=== PATIENT | male | born 1935 | race Caucasian/White ===

== ENCOUNTER 2017-08-13 10:08 | Outpatient (CLI) | payer OTHER ==
--- NOTE | 2017-08-13 12:52 | ULT ---
ABDOMINAL AORTA ULTRASOUND: HISTORY: Evaluate for aortic aneurysm. COMPARISON: 09/03/15. TECHNIQUE: Sagittal and transverse imaging of the abdominal aorta is performed. FINDINGS: The proximal aorta is not appreciated due to bowel gas. There is dilatation of the mid aorta measuri ng 3.4 x 3.2 x 2.8 cm. Previously, the aorta measured 3.8 cm in the transverse dimension. No apprec iable change. Distal aorta measures 1.9 x 1.7 cm. IMPRESSION: Essentially stable aneurysmal dilatation of the mid abdominal aorta. POS: [facility]
== END 2017-08-13 10:09 | disposition home or self-care (01) ==
LOC: ULT 10:08
PROVIDERS: ATTEND Family Medicine
DX: I71.4 Abdominal aortic aneurysm, without rupture (principal)
CPT/HCPCS: 76775

== ENCOUNTER 2018-05-06 12:29 | Outpatient (CLI) | payer OTHER ==
--- NOTE | 2018-05-06 14:43 | ULT ---
ABDOMINAL AORTIC ULTRASOUND: History: Follow up abdominal aortic aneurysm. Comparison: 08-13-17, 09-03-15 FINDINGS: The proximal abdominal aorta measures in the 2.3 cm range. In the midabdominal aorta which appears to be more in an infrarenal location there is a somewhat sacular dilatation of the aorta. The best AP m easurements I obtain are approximately 3.4 cm which is similar to the previous examination. These erin surements are best obtained on the sagittal view. The aorta is somewhat tortuous in an AP direction a nd straight transverse images somewhat falsely elongate the lumen. The transverse dimension is 3.3 cm . Distally there is slight ectasia of the aorta but no aneurysm. IMPRESSION: Stable abdominal aortic aneurysm. An area of focal ectasia which only measures in the 1.6 cm range. POS: [facility]
== END 2018-05-06 12:30 | disposition home or self-care (01) ==
LOC: ULT 12:29
PROVIDERS: ATTEND Nurse Practitioner Family
DX: I71.4 Abdominal aortic aneurysm, without rupture (principal); I77.819 Aortic ectasia, unspecified site
CPT/HCPCS: 76775

== ENCOUNTER 2019-05-08 07:58 | Inpatient (IN) | payer MEDICARE, OTHER ==
[2019-05-08 08:42] LABS: Bacteria/HPF 1+ HPF (None Seen); Bilirubin Negative (Negative); Blood, Urine Trace (Negative); Clarity Clear (Clear); Glucose, Urine (Dipstick) Normal (Negative); Leukocyte Negative Leu/uL (Negative); Nitrite Negative (Negative); Protein, Urine (Dipstick) 30 mg/dL (Neg-Trace); Squamous Epithelial None Seen HPF (0-3); Urobilinogen Normal mg/dL (Less than 2); WBC/HPF 0-3 HPF (0-3)
[2019-05-08 08:45] LABS: #Lymphocytes 0.5 thou/uL (1.20-3.40); #Monocytes 0.2 thou/uL (0.11-0.59); #Neutrophils 2.6 thou/uL (1.40-6.50); %Lymphocytes 15.6 % (21.0-51.0); %Monocytes 5.7 % (0.0-10.0); %Neutrophils 78.8 % (42.0-75.0); Hemoglobin 10.5 g/dL (14.0-18.0); Mean Corpuscular HGB CONC 35.2 g/dL (32.0-36.0); Mean Corpuscular Hemoglobin 34.2 pg (27.0-31.0); Mean Corpuscular Volume 97.1 fL (78.0-98.0); Mean Platelet Volume 7.9 fL (7.4-10.4); Platelet Count 121 thou/uL (130-400); RBC Distribution Width 14.7 % (11.5-14.5); Red Blood Cell (RBC) Count 3.08 mill/uL (4.70-6.10); White Blood Cell (WBC) Count 3.3 thou/uL (4.8-10.8)
--- NOTE | 2019-05-08 08:51 | RAD ---
Chest AP view INDICATION: Found down on ground; history of Parkinson's disease and dementia; dyspnea COMPARISON: September 25, 2014 single view chest radiograph FINDINGS: Lungs:There is right suprahilar and left infrahilar airspace opacities. There is air interstitial [place] involving both lower lobes suspicious for edema. Cardiac silhouette:There is moderate cardiomegaly Pulmonary vasculature:Mildly prominent Pleural spaces:No pleural effusion or pneumothorax is demonstrated. Upper abdomen:No abnormality seen. Osseous structures: No acute osseous abnormality. Additional findings:None. IMPRESSION: Moderate cardiomegaly and mild pulmonary vascular congestion. There are bilateral perihil ar opacities and interstitial opacities suspicious for edema. Recommend correlation for mild CHF
[2019-05-08 08:52] LABS: ALT (SGPT) 28 U/L (8-55); AST (SGOT) 36 U/L (5-34); Albumin 3.5 g/dL (3.4-4.8); Alkaline Phosphatase 64 U/L (40-110); Anion Gap 12 mmol/L (10-20); BUN (Urea Nitrogen) 32 mg/dL (8.4-25.7); Bilirubin, Total 1.4 mg/dL (0.2-1.2); CK (CPK) 419 U/L (30-200); Calc. Creatinine Clearance 0 mL/min (70-130); Calcium 9.1 mg/dL (7.8-10.44); Carbon Dioxide 25 mmol/L (23-31); Chloride 107 mmol/L (98-107); Estimated GFR-MDRD 60; Globulin 2.5 g/dL (2.4-3.5); Glucose 132 mg/dL (83-110); Potassium 3.9 mmol/L (3.5-5.1); Sodium 140 mmol/L (136-145)
[2019-05-08 09:10] LABS: CKMB 3.8 ng/mL (0-6.6)
--- NOTE | 2019-05-08 09:45 | CT ---
CT Brain WO Con: 05/08/2019 8:14 AM CLINICAL HISTORY: Altered mental status. IMAGING TECHNIQUE: Multiple CT images were obtained of the brain without IV contrast. COMPARISON: CT the brain dated September 25, 2014 FINDINGS: Brain: No acute infarct or hemorrhage is evident. No midline shift. There is mild chronic small ves kevin white matter ischemic change. Ventricles: Normal. No hydrocephalus.. Skull: Intact.. Visualized Paranasal sinuses: Clear.. Mastoid air cells:Clear. Extracranial soft tissues:Normal. IMPRESSION: No acute intracranial abnormality.
--- NOTE | 2019-05-08 10:05 | CT ---
CT Cervical Spine WO Con Indication: Altered mental status history of fall with neck pain COMPARISON: None. FINDINGS: Fracture: None. Spinal alignment: No acute malalignment. Craniocervical junction: Within normal limits. Vertebral body heights: Maintained. Cervical spine degenerative change: Mild multilevel spondylosis of the cervical spine. Lung apices: Clear. IMPRESSION: No acute osseous abnormality.
--- NOTE | 2019-05-08 10:14 | CT ---
CT OF THE CHEST, ABDOMEN AND PELVIS WITH IV CONTRAST INDICATION: History of fall, altered mental status and dementia COMPARISON: CT the abdomen and pelvis without contrast dated September 25, 2014 FINDINGS: CHEST: Lungs:There are patchy areas of peripheral gland groundglass opacity and more prominent areas of conf luent consolidation in the right upper lobe and right middle lobe. There are a few scattered areas of reticular nodularity. Heart and great vessels:There are moderate coronary artery and thoracic aortic calcifications Pleural space: Small bilateral pleural effusions Additional findings: There are calcified lymph nodes within the mediastinum. There is a mildly promi nent tracheal lymph node measuring 1.3 cm. ABDOMEN: Liver:Normal appearing. Spleen:Normal appearing. Pancreas:Normal appearing. Adrenal Glands:Normal appearing. Kidneys:Small left renal cyst. Aorta:There is a stable infrarenal abdominal aortic aneurysm measuring 4.1 cm. There are moderate vas cular calcifications seen involving the visualized vasculature. Additional findings: No free fluid or free air. PELVIS: Bowel:Colonic diverticulosis. Bowel is of normal caliber. Bladder:Normal appearing. Reproductive structures:Normal appearing. Rectum and perirectal soft tissues:Moderate amount retained stool. Additional findings: No free fluid or free air. OSSEOUS STRUCTURES: Stable moderate wedge compression fracture of L1. There is diffuse osteopenia. No acute fracture is d emonstrated. There is scattered degenerative and osteoarthritic changes. IMPRESSION: 1. Multifocal bronchopneumonia. Small bilateral pleural effusions. 2. Stable infrarenal abdominal aortic aneurysm measuring 4.1 cm. 3. Stable moderate wedge compression fracture of L1.
[2019-05-08] MEDS ORDERED: cefTRIAXone\\ROCEPHIN 2 GM VIAL ONE (10:21)
[2019-05-08] MEDS ORDERED: Aspirin Chewable 81 MG TAB ONE (11:31)
[2019-05-08] MEDS ORDERED: Lorazepam 1 MG TAB ONE (12:30)
[2019-05-08 12:40] LABS: Troponin I 0.149 ng/mL (< 0.028)
[2019-05-08] MEDS ORDERED: Iopamidol 370 76% 100 ML VIAL ONE (13:27)
[2019-05-08] MEDS ORDERED: Acetaminophen 650 MG Suppository PR PRN (13:50)
[2019-05-08] MEDS ORDERED: Labetalol HCl 100 MG/20 ML VIAL SLOW IVP PRN (13:57)
[2019-05-08] MEDS ORDERED: cloNIDine 0.1 MG TAB PO PRN (13:57)
[2019-05-08] MEDS ORDERED: Dextrose 5 %-0.45 % NaCl 1,000 ML IV SCH (14:00)
[2019-05-08] MEDS: Piperacillin/Tazobactam 3.375 GM in Sodium Chloride 0.9% 100 ML IVPB SCH ×2 (14:28→20:22)
[2019-05-08] MEDS: Dextrose 5 %-0.45 % NaCl 1,000 ML IV SCH (14:28)
--- NOTE | 2019-05-08 14:57 | HP ---
PRIMARY CARE: [facility]. PRIMARY NEUROLOGIST: Dr. Barth. CHIEF COMPLAINT: Altered mentation with recurrent falls. HISTORY OF PRESENT ILLNESS: The patient is an 84-year-old male with Parkinson disease, dementia, and hypothyroidism, who was brought in by EMS with altered mentation. He is followed by Dr. Barth for Parkinson disease. He is currently on carbidopa-levodopa. He also has a history of visual hallucinations and was started on Seroquel. This was later discontinued per family. Over the last 24 to 48 hours, the patient was found to have altered mentation along with recurrent falls. He has been short of breath as well. Around 5:00 a.m. this morning, he had a fall. EMS was called. He has been feeling generally weak since yesterday. It is unclear whether one side is more weaker than the other. When EMS arrived, he was in respiratory distress. His initial O2 saturation by the EMS was in 80s that improved to 90s. Not much information is available from the patient. Most of the history was obtained from the family as well as the ER report. PAST MEDICAL HISTORY: 1. Parkinson disease. 2. Hypothyroidism. 3. History of hypertension in the past. 4. Dementia. 5. Depression. 6. Hard of hearing. PAST SURGICAL HISTORY: 1. TURP in 2003. 2. Tonsillectomy. ALLERGIES: NO KNOWN DRUG ALLERGIES. CURRENT HOME MEDICATIONS: Levodopa-carbidopa 2500 three tablets in the morning around 9 and three tablets around 4 p.m., Aricept 5 mg daily, fluoxetine 20 mg daily, levothyroxine 100 mcg daily. SOCIAL HISTORY: As discussed above. He ambulates with the help of a cane per family. No current use of tobacco, alcohol, or drug use. FAMILY HISTORY: Negative for heart disease. REVIEW OF SYSTEMS: Cannot be reliably obtained from the patient due to current mentation. PHYSICAL EXAMINATION: VITAL SIGNS: In the emergency room showed temperature 99.2, respirations of 22, pulse rate of 76, blood pressure of 147/83 with O2 saturation of 94%. GENERAL: An 84-year-old male with altered mentation. HEENT: Head, atraumatic and normocephalic. Sclerae anicteric. Dry mucous membranes. NECK: Supple. No JVD. No neck stiffness. LUNGS: Show rales at the right base with scattered rhonchi. No significant accessory muscle use. Lungs were symmetrical. HEART: S1 and S2 present. Regular rate and rhythm. No rubs or gallops. ABDOMEN: Soft, nontender. Bowel sounds present. No guarding. No rigidity. EXTREMITIES: No edema or calf tenderness. NEUROLOGY: The patient is spontaneously moving all 4 extremities. There is no hypertonia. Detailed neurological examination could not be done due to current mentation. PSYCHIATRY: As discussed above. SKIN: Warm and dry. LYMPH NODES: No palpable lymph nodes in the neck. PERIPHERAL VASCULAR: Radial pulses palpable bilaterally. MUSCULOSKELETAL: No joint swelling or tenderness. LABORATORY FINDINGS: WBC 3.3 with hemoglobin 10.5, hematocrit 29.9, platelet of 121. Chemistry showed sodium 140, potassium 3.9, chloride 107, bicarb 25, BUN 32, creatinine 1.15. Troponin of 0.171, CK of 419, BNP of 645. IMAGING STUDIES: Chest x-ray by my review showed cardiomegaly with mild pulmonary vascular congestion. CT scan of the chest, abdomen, and pelvis showed multifocal bronchopneumonia with small bilateral pleural effusion. It also showed stable moderate wedge compression of L1 as well as stable infrarenal abdominal aortic aneurysm measuring 4.[address] was negative for acute fractures or dislocation. CT scan of the brain was negative for acute findings. Telemetry monitoring by my review showed sinus rhythm. IMPRESSION: 1. Toxic metabolic encephalopathy secondary to acute hypoxic respiratory failure. 2. Aspiration pneumonia. 3. Congestive heart failure exacerbation, ejection fraction unknown. 4. Type 2 myocardial infarction. 5. Abnormal LFTs, probably secondary to passive hepatic congestion. 6. Generalized weakness with recurrent falls. 7. Chronic kidney disease, stage 2. 8. Dementia. 9. Infrarenal abdominal aortic aneurysm 4.1 cm. 10. Moderate wedge compression fracture of L1. 11. Leukopenia, probably secondary to pneumonia. 12. Thrombocytopenia. 13. History of Parkinson disease. 14. Hypothyroidism. 15. Depression, mild, stable. PLAN: 1. The patient will be monitored in the telemetry unit. We will start him on IV Zosyn for aspiration pneumonia. Recheck labs in a.m. We will resume carbidopa-levodopa along with Aricept, Prozac, and levothyroxine. We will add low-dose steroid. Nebulizer treatment as needed. Recheck labs in a.m. Physical Therapy, Occupational Therapy, and Speech Therapy consultation. We will consult Neurology, Dr. Barth. Code status was verified. The patient is full code. Surrogate decision maker is the spouse at the bedside. Echocardiogram will be obtained. We will hold diuretics for now. 2. Plan of care was discussed with the patient and the family in detail. The spouse stated understanding. Job ID: [id number]
[2019-05-08 15:11] LABS: Troponin I 0.128 ng/mL (< 0.028)
[2019-05-08] MEDS: predniSONE 20 MG TAB PO SCH (17:23)
[2019-05-08] MEDS: Carbidopa/Levodopa 25-100 mg Tablet PO SCH (17:23)
[2019-05-08] MEDS: Famotidine/PF 20 mg/2ml Vial SLOW IVP SCH (20:22)
[2019-05-08] MEDS: Famotidine 20 MG TAB PO SCH (20:22)
[2019-05-09] MEDS: Piperacillin/Tazobactam 3.375 GM in Sodium Chloride 0.9% 100 ML IVPB SCH ×4 (02:16→20:21)
[2019-05-09 05:00] LABS: #Lymphocytes 0.3 thou/uL (1.20-3.40); #Monocytes 0.2 thou/uL (0.11-0.59); #Neutrophils 2.1 thou/uL (1.40-6.50); %Eosinophils 0.2 % (0.0-10.0); %Lymphocytes 13.3 % (21.0-51.0); %Monocytes 6.3 % (0.0-10.0); %Neutrophils 80.3 % (42.0-75.0); Hemoglobin 9.9 g/dL (14.0-18.0); Mean Corpuscular HGB CONC 34.8 g/dL (32.0-36.0); Mean Corpuscular Hemoglobin 33.9 pg (27.0-31.0); Mean Corpuscular Volume 97.4 fL (78.0-98.0); Mean Platelet Volume 7.9 fL (7.4-10.4); Platelet Count 124 thou/uL (130-400); RBC Distribution Width 14.4 % (11.5-14.5); White Blood Cell (WBC) Count 2.6 thou/uL (4.8-10.8)
[2019-05-09 05:25] LABS: ALT (SGPT) 9 U/L (8-55); AST (SGOT) 25 U/L (5-34); Albumin 3.1 g/dL (3.4-4.8); Alkaline Phosphatase 51 U/L (40-110); Anion Gap 11 mmol/L (10-20); BUN (Urea Nitrogen) 30 mg/dL (8.4-25.7); Bilirubin, Total 0.9 mg/dL (0.2-1.2); Calc. Creatinine Clearance 42 mL/min (70-130); Calcium 8.6 mg/dL (7.8-10.44); Carbon Dioxide 26 mmol/L (23-31); Chloride 108 mmol/L (98-107); Estimated GFR-MDRD 63; Globulin 2.5 g/dL (2.4-3.5); Glucose 133 mg/dL (83-110); Magnesium 2.1 mg/dL (1.6-2.6); Protein, Total 5.6 g/dL (5.8-8.1); Sodium 141 mmol/L (136-145)
[2019-05-09] MEDS: Levothyroxine Sodium 100 MCG TAB PO SCH (06:05)
[2019-05-09] MEDS ORDERED: Enoxaparin Sodium 30 MG/0.3 ML SYRINGE SC SCH (09:00)
[2019-05-09] MEDS: Carbidopa/Levodopa 25-100 mg Tablet PO SCH ×2 (09:49→16:10)
[2019-05-09] MEDS: Saccharomyces boulardii 250 MG CAP PO SCH (09:49)
[2019-05-09] MEDS: Aspirin 81 mg Enteric Coated Tablet PO SCH (09:49)
[2019-05-09] MEDS: predniSONE 20 MG TAB PO SCH ×2 (09:49→16:10)
[2019-05-09] MEDS: Famotidine/PF 20 mg/2ml Vial SLOW IVP SCH (09:50)
[2019-05-09] MEDS: Donepezil HCl 5 MG TAB PO SCH (09:50)
[2019-05-09] MEDS: FLUoxetine HCl 20 MG CAP PO SCH (09:50)
[2019-05-09] MEDS: Famotidine 20 MG TAB PO SCH (09:51)
--- NOTE | 2019-05-09 14:26 | RAD ---
Modified barium swallow HISTORY: Dysphagia. Feeding difficulties. FINDINGS: Exam was performed in conjunction with speech pathology with multiple consistencies. Video review is available and demonstrates poor oral control with early spill of contrast. There is delay in initiation of swallowing with most consistencies. Flash penetration with barium liquids. No tyrel aspiration evident. Significant pooling within the valleculae and piriform sinuses with partial clearing upon secondary s wallows. Worse with the liquids than with solids. The esophagus below the level of the hypopharynx was not evaluated. Fluoroscopy time 1.0 minute. Please see separate detailed report from speech pathology.
[2019-05-09] MEDS: Lorazepam 2 MG/ML VIAL SLOW IVP PRN ×2 (16:11→20:20)
[2019-05-09] MEDS: Dextrose 5 %-0.45 % NaCl 1,000 ML IV SCH (17:52)
--- NOTE | 2019-05-09 22:23 | PDOC.HOSPP ---
- Subjective Encounter Date: 05/09/19 Encounter Time: 11:00 Subjective: Patient seen and examined for Encephalopathy. Remains confused/agitated. Family at bedside. No overnight events - Objective Vital Signs & Weight: Vital Signs (12 hours) Temp Pulse Resp BP Pulse Ox 05/09/19 19:20 97.8 F 66 18 154/82 H 92 L 05/09/19 15:50 97.8 F 78 18 193/86 H 95 05/09/19 12:00 97.4 F L 70 18 150/77 H 93 L Weight Admit Weight 135 lb 2.294 oz Weight 135 lb 2.294 oz I&O: 05/08/19 05/09/19 05/10/19 06:59 06:59 06:59 Intake Total 580 1193 Balance 580 1193 Result Diagrams: 05/09/19 04:16 05/09/19 04:16 EKG Reviewed by me: Yes (Tele SR) Hospitalist ROS - Review of Systems ROS unobtainable: due to mental status - Medication Medications: Active Medications Generic Name Dose Route Start Last Admin Trade Name Rustyq PRN Reason Stop Dose Admin Aspirin 81 mg 05/09/19 09:00 05/09/19 09:49 Ecotrin PO 81 mg DAILY LARISA Administration Carbidopa/Levodopa 3 tab 05/08/19 16:00 05/09/19 16:10 Sinemet 25-100 PO 3 tab 0900,1600 LARISA Administration Donepezil HCl 5 mg 05/09/19 09:00 05/09/19 09:50 Aricept PO 5 mg DAILY LARISA Administration Enoxaparin Sodium 30 mg 05/09/19 09:00 05/09/19 09:50 Lovenox SC 30 mg 0900 LARISA Administration Fluoxetine HCl 20 mg 05/09/19 09:00 05/09/19 09:50 Prozac PO 20 mg DAILY LARISA Administration Piperacillin Sod/Tazobactam 100 mls @ 200 mls/hr 05/08/19 14:00 05/09/19 20: 21 Sod 3.375 gm/ Sodium Chloride IVPB 100 mls 0200,0800,1400,2000 LARISA Administration Dextrose/Sodium Chloride 1,000 mls @ 30 mls/hr 05/08/19 14:10 05/09/19 17:52 D5 1/2 Ns IV 1,000 mls .Q24H LARISA Administration Levothyroxine Sodium 100 mcg 05/09/19 06:00 05/09/19 06:05 Synthroid PO 100 mcg 0600 LARISA Administration Lorazepam 0.25 mg 05/08/19 13:48 05/09/19 20:20 Ativan SLOW IVP 0.25 mg Q4H PRN Administration Anxiety/Agitation Prednisone 20 mg 05/08/19 17:00 05/09/19 16:10 Prednisone PO 20 mg BID-WM LARISA Administration Saccharomyces Cosmedii 250 mg 05/09/19 09:00 05/09/19 09:49 Florastor PO 250 mg DAILY LARISA Administration - Exam General - other findings: Agitated/Confused Heart: RRR, no gallops, no rubs, normal peripheral pulses Respiratory: no wheezes, normal chest expansion, rales, rhonchi Gastrointestinal: soft, non-distended, normal bowel sounds, no guarding, no rigidity Extremities: no edema Neurological: no new deficit (moving all 4 ext, no stiffness) Psychiatric: not oriented Hosp A/P - Plan DVT proph w/SCDs 1. Toxic metabolic encephalopathy secondary to acute hypoxic respiratory failure. 2. Aspiration pneumonia. 3. Congestive heart failure exacerbation, ejection fraction unknown. 4. Type 2 myocardial infarction. 5. Abnormal LFTs, probably secondary to passive hepatic congestion. 6. Generalized weakness with recurrent falls. 7. Chronic kidney disease, stage 2. 8. Dementia. 9. Infrarenal abdominal aortic aneurysm 4.1 cm. 10. Moderate wedge compression fracture of L1. 11. Leukopenia, probably secondary to pneumonia. 12. Thrombocytopenia. 13. History of Parkinson disease. 14. Hypothyroidism. 15. Depression, mild, stable. PLAN: Cont Atbx Modified Barium today AM labs Cont Sinemet Await Echo Cont other meds Plan d/w family at bedside
[2019-05-10] MEDS: Piperacillin/Tazobactam 3.375 GM in Sodium Chloride 0.9% 100 ML IVPB SCH ×4 (01:43→20:58)
[2019-05-10] MEDS: Lorazepam 2 MG/ML VIAL SLOW IVP PRN ×4 (01:47→17:17)
[2019-05-10] MEDS ORDERED: Diltiazem 125 MG in Sodium Chloride 0.9% 100 ML IVPB SCH ×2 (03:45→05:13)
[2019-05-10] MEDS ORDERED: Digoxin 0.5 MG/2 ML AMP SLOW IVP SCH (05:15)
[2019-05-10] MEDS: Levothyroxine Sodium 100 MCG TAB PO SCH (05:31)
[2019-05-10 09:10] LABS: #Lymphocytes 0.3 thou/uL (1.20-3.40); #Monocytes 0.2 thou/uL (0.11-0.59); %Eosinophils 0.1 % (0.0-10.0); %Lymphocytes 9.6 % (21.0-51.0); %Monocytes 5.7 % (0.0-10.0); %Neutrophils 84.7 % (42.0-75.0); Mean Corpuscular HGB CONC 34.1 g/dL (32.0-36.0); Mean Corpuscular Hemoglobin 33.5 pg (27.0-31.0); Mean Corpuscular Volume 98.3 fL (78.0-98.0); Mean Platelet Volume 7.4 fL (7.4-10.4); Platelet Count 179 thou/uL (130-400); RBC Distribution Width 14.3 % (11.5-14.5); Red Blood Cell (RBC) Count 3.28 mill/uL (4.70-6.10); White Blood Cell (WBC) Count 3.6 thou/uL (4.8-10.8)
[2019-05-10] MEDS ORDERED: Amiodarone 450 MG in Dextrose 5% in Water 250 ML IVPB SCH (09:30)
[2019-05-10 09:36] LABS: Anion Gap 12 mmol/L (10-20); BUN (Urea Nitrogen) 29 mg/dL (8.4-25.7); Calc. Creatinine Clearance 44 mL/min (70-130); Calcium 8.4 mg/dL (7.8-10.44); Carbon Dioxide 22 mmol/L (23-31); Chloride 109 mmol/L (98-107); Estimated GFR-MDRD 65; Glucose 112 mg/dL (83-110); Potassium 3.9 mmol/L (3.5-5.1); Sodium 139 mmol/L (136-145)
--- NOTE | 2019-05-10 10:01 | CON ---
DATE OF CONSULTATION: HISTORY OF PRESENT ILLNESS: The patient is an 84-year-old gentleman with a history of Parkinson disease, who was admitted with pneumonia and found to have an irregular heart rhythm. The patient has a previous history of severe Parkinson's and suffers from dementia. The patient has no known cardiac history. The patient was admitted with pneumonia. He was noted to have an irregular heart rhythm. The patient was unable to give any type of coherent history. PAST MEDICAL HISTORY: 1. Parkinson disease. 2. Hypertension. PAST SURGICAL HISTORY: TURP and tonsillectomy. SOCIAL HISTORY: Nonsmoker. ALLERGIES: NO KNOWN DRUG ALLERGIES. MEDICATIONS: 1. Aricept 5 daily. 2. Carbidopa/levodopa three tablets p.o. b.i.d. 3. Prozac 20 daily. 4. Synthroid 100 mcg daily. ALLERGIES: NO KNOWN DRUG ALLERGIES. FAMILY HISTORY: Positive family history of heart disease. REVIEW OF SYSTEMS: Not obtainable. PHYSICAL EXAMINATION: GENERAL: Somnolent gentleman, in no acute distress. VITAL SIGNS: Blood pressure 111/70. NECK: No jugular venous distention. LUNGS: Clear to auscultation. HEART: Irregular rate and rhythm. Normal S1 and S2. No murmurs. ABDOMEN: Nondistended. EXTREMITIES: Showed no edema. VASCULAR: Radial pulses 2+. LABORATORY DATA: Sodium 141, potassium 4.0, chloride 108, bicarbonate 26, BUN 30, creatinine 1.1, and glucose 133. Troponin 0.0128. His white blood cell count is 3.6, hemoglobin 11.0, hematocrit 32.3, and platelets 179. His EKG on admission normal sinus rhythm with a normal ECG. Telemetry monitoring atrial fibrillation, rapid ventricular response. IMPRESSION: 1. Paroxysmal atrial fibrillation. 2. Parkinson disease. 3. Dementia. 4. Mitral regurgitation. This gentleman presents with paroxysmal atrial fibrillation. The patient is a prohibitive risk for anticoagulation with a history of multiple falls. I would recommend the patient switch to amiodarone to hopefully convert him back to sinus rhythm and to lower his risk of future thromboemboli by hopefully maintaining sinus rhythm. PLAN: 1. Discontinue IV Cardizem. 2. Start IV amiodarone. Job ID: [id number] [facility]
[2019-05-10] MEDS ORDERED: Amiodarone 150 MG, Admixture Fee 1 EACH in Dextrose 5% in Water 100 ML IVPB SCH (10:15)
[2019-05-10] MEDS: Saccharomyces boulardii 250 MG CAP PO SCH (11:05)
[2019-05-10] MEDS: predniSONE 20 MG TAB PO SCH ×2 (11:05→17:35)
[2019-05-10] MEDS: FLUoxetine HCl 20 MG CAP PO SCH (11:05)
[2019-05-10] MEDS: Aspirin 81 mg Enteric Coated Tablet PO SCH (11:06)
[2019-05-10] MEDS: Carbidopa/Levodopa 25-100 mg Tablet PO SCH ×2 (11:06→17:35)
[2019-05-10] MEDS: Famotidine 20 MG TAB PO SCH (11:06)
[2019-05-10] MEDS: Enoxaparin Sodium 60 MG/0.6 ML SYRINGE SC SCH ×2 (11:06→20:58)
[2019-05-10] MEDS: Famotidine/PF 20 mg/2ml Vial SLOW IVP SCH (11:07)
[2019-05-10] MEDS: Donepezil HCl 5 MG TAB PO SCH (11:07)
[2019-05-10] MEDS ORDERED: Gabapentin 100 MG CAP PO SCH (12:00)
[2019-05-10] MEDS: Dextrose 5 %-0.45 % NaCl 1,000 ML IV SCH (17:55)
--- NOTE | 2019-05-10 18:55 | PDOC.HOSPP ---
- Subjective Encounter Date: 05/10/19 Encounter Time: 18:53 Subjective: Patient seen and examined for Encephalopathy. Developed Afib with RVR - now on Amiodarone drip per Cardiology. Cardizem drip dced. No significant change in mentation. - Objective Vital Signs & Weight: Vital Signs (12 hours) Temp Pulse Pulse Pulse Resp BP BP 05/10/19 14:25 95 05/10/19 13:55 87 05/10/19 11:09 73 124/68 114/66 05/10/19 09:58 77 05/10/19 09:01 89 77 107/68 105/62 05/10/19 08:00 80 05/10/19 07:42 97.7 F 77 24 H BP Pulse Ox Pulse Ox 05/10/19 14:25 122/71 05/10/19 13:55 121/68 05/10/19 11:09 82 L 05/10/19 09:58 107/64 05/10/19 09:01 05/10/19 08:00 111/70 05/10/19 07:42 116/65 92 L Weight Admit Weight 135 lb 2.294 oz Weight 137 lb 3.2 oz I&O: 05/09/19 05/10/19 05/11/19 06:59 06:59 06:59 Intake Total 580 1553 Balance 580 1553 Result Diagrams: 05/10/19 08:50 05/10/19 08:50 EKG Reviewed by me: Yes (Tele Afib with RVR earlier) Hospitalist ROS - Review of Systems ROS unobtainable: due to mental status - Medication Medications: Active Medications Generic Name Dose Route Start Last Admin Trade Name Do PRN Reason Stop Dose Admin Aspirin 81 mg 05/09/19 09:00 05/10/19 11:06 Ecotrin PO 81 mg DAILY LARISA Administration Carbidopa/Levodopa 3 tab 05/08/19 16:00 05/10/19 17:35 Sinemet 25-100 PO 3 tab 0900,1600 LARISA Administration Donepezil HCl 5 mg 05/09/19 09:00 05/10/19 11:07 Aricept PO 5 mg DAILY LARISA Administration Enoxaparin Sodium 60 mg 05/10/19 09:00 05/10/19 11:06 Lovenox SC 60 mg 0900,2100 LARISA Administration Famotidine 20 mg 05/10/19 09:00 05/10/19 11:06 Pepcid PO Not Given DAILY LARISA Famotidine 20 mg 05/10/19 09:00 05/10/19 11:07 Pepcid SLOW IVP 20 mg DAILY LARISA Administration Fluoxetine HCl 20 mg 05/09/19 09:00 05/10/19 11:05 Prozac PO 20 mg DAILY LARISA Administration Piperacillin Sod/Tazobactam 100 mls @ 200 mls/hr 05/08/19 14:00 05/10/19 13: 13 Sod 3.375 gm/ Sodium Chloride IVPB 100 mls 0200,0800,1400,2000 LARISA Administration Dextrose/Sodium Chloride 1,000 mls @ 30 mls/hr 05/08/19 14:10 05/10/19 17:55 D5 1/2 Ns IV Not Given .Q24H LARISA Amiodarone HCl 450 mg/ 259 mls @ 0 mls/hr 05/10/19 09:30 05/10/19 11:09 Dextrose/Water IVPB 259 mls INF LARISA Administration Protocol Per Protocol Levothyroxine Sodium 100 mcg 05/09/19 06:00 05/10/19 05:31 Synthroid PO 100 mcg 0600 LARISA Administration Lorazepam 0.25 mg 05/08/19 13:48 05/10/19 17:17 Ativan SLOW IVP 0.25 mg Q4H PRN Administration Anxiety/Agitation Prednisone 20 mg 05/08/19 17:00 05/10/19 17:35 Prednisone PO 20 mg BID-WM LARISA Administration Saccharomyces Boulardii 250 mg 05/09/19 09:00 05/10/19 11:05 Florastor PO 250 mg DAILY LARISA Administration - Exam General Appearance: NAD (on Amiodarone) Heart: no gallops, no rubs, irregular Respiratory: no wheezes, normal chest expansion, rales, rhonchi Gastrointestinal: soft, non-tender, non-distended, normal bowel sounds Extremities: no edema Neurological - other findings: Neuro - Cannot asssess due to current mentation Psychiatric: not oriented Hosp A/P - Plan plan discussed w/ family, PT/OT, DVT proph w/lovenox 1. Toxic metabolic encephalopathy secondary to acute hypoxic respiratory failure. 2. Aspiration pneumonia. 3. Afib with RVR - on Amiodarone drip 4. Type 2 myocardial infarction. 5. Abnormal LFTs, probably secondary to passive hepatic congestion. 6. Generalized weakness with recurrent falls. 7. Chronic kidney disease, stage 2. 8. Dementia. 9. Infrarenal abdominal aortic aneurysm 4.1 cm. 10. Moderate wedge compression fracture of L1. 11. Leukopenia, probably secondary to pneumonia. 12. Thrombocytopenia - improving. 13. History of Parkinson disease. 14. Hypothyroidism. 15. Depression, mild, stable. 16. Swallow dysfunction. PLAN: Risk associated with anticoag discussed with family - they will get back to me tomorrow. They recommended to continue for now. On Amiodarone drip Cont Atbx/Steroids Cont modified diet Echo reviewed Cont other meds Plan d/w family at bedside AM labs
[2019-05-10] MEDS: Gabapentin 100 MG CAP PO SCH (20:59)
[2019-05-11] MEDS ORDERED: Levothyroxine Sodium 100 MCG TAB ONE (06:10)
[2019-05-11] MEDS: Donepezil HCl 5 MG TAB ONE ×3 (09:54→17:38)
[2019-05-11] MEDS: Carbidopa/Levodopa 25-100 mg Tablet PO SCH ×3 (09:54→16:39)
[2019-05-11] MEDS: predniSONE 20 MG TAB PO SCH ×3 (09:54→16:39)
[2019-05-11] MEDS: Famotidine 20 MG TAB PO SCH ×2 (09:54→12:50)
[2019-05-11] MEDS: Amiodarone 200 MG TAB PO SCH ×2 (09:54→21:07)
[2019-05-11] MEDS: Vit A,C & E/Lutein/Minerals Tablet PO SCH ×2 (09:54→12:52)
[2019-05-11] MEDS: Gabapentin 100 MG CAP PO SCH ×3 (09:54→21:07)
[2019-05-11] MEDS: Aspirin 81 mg Enteric Coated Tablet PO SCH ×2 (09:54→12:50)
[2019-05-11] MEDS: Saccharomyces boulardii 250 MG CAP PO SCH ×2 (09:54→12:52)
[2019-05-11] MEDS: FLUoxetine HCl 20 MG CAP PO SCH ×2 (09:54→12:51)
[2019-05-11] MEDS: Piperacillin/Tazobactam 3.375 GM in Sodium Chloride 0.9% 100 ML IVPB SCH ×5 (09:54→21:07)
[2019-05-11] MEDS: Levothyroxine Sodium 100 MCG TAB PO SCH (12:48)
[2019-05-11] MEDS: Donepezil HCl 5 MG TAB PO SCH (12:50)
[2019-05-11] MEDS: Enoxaparin Sodium 60 MG/0.6 ML SYRINGE SC SCH (12:50)
[2019-05-11] MEDS: Famotidine/PF 20 mg/2ml Vial SLOW IVP SCH (12:51)
[2019-05-11] MEDS: Lorazepam 2 MG/ML VIAL SLOW IVP PRN ×2 (13:39→22:57)
[2019-05-11] MEDS: Dextrose 5 %-0.45 % NaCl 1,000 ML IV SCH ×2 (14:17→17:28)
--- NOTE | 2019-05-11 14:28 | RAD ---
CHEST ONE VIEW: INDICATIONS: History of shortness of breath and pneumonia. COMPARISON: CT chest and abdomen and pelvis dated 05/08/2019. FINDINGS: The patchy air space opacities with more focal areas of consolidation involving portions of the right upper lobe and right middle lobe are stable. There are tiny bilateral pleural effusions. Heart size is mildly enlarged. No acute osseous abnormality is evident. IMPRESSION: 1. Stable bilateral pneumonia. 2. Small bilateral pleural effusions. POS: [facility]
[2019-05-11] MEDS ORDERED: Lorazepam 2 MG/ML VIAL SLOW IVP SCH (15:45)
[2019-05-11] MEDS ORDERED: Lorazepam 2 MG/ML VIAL ONE (15:47)
[2019-05-11 18:32] LABS: #Lymphocytes 0.4 thou/uL (1.20-3.40); #Monocytes 0.2 thou/uL (0.11-0.59); #Neutrophils 1.7 thou/uL (1.40-6.50); %Basophils 0.8 % (0.0-1.0); %Eosinophils 0.1 % (0.0-10.0); %Lymphocytes 17.4 % (21.0-51.0); %Monocytes 10.1 % (0.0-10.0); %Neutrophils 71.5 % (42.0-75.0); Hemoglobin 10.7 g/dL (14.0-18.0); Mean Corpuscular HGB CONC 33.8 g/dL (32.0-36.0); Mean Corpuscular Hemoglobin 33.3 pg (27.0-31.0); Mean Corpuscular Volume 98.4 fL (78.0-98.0); Mean Platelet Volume 7.5 fL (7.4-10.4); Platelet Count 195 thou/uL (130-400); RBC Distribution Width 14.3 % (11.5-14.5); Red Blood Cell (RBC) Count 3.22 mill/uL (4.70-6.10); White Blood Cell (WBC) Count 2.3 thou/uL (4.8-10.8)
[2019-05-11 18:44] LABS: Anion Gap 9 mmol/L (10-20); BUN (Urea Nitrogen) 31 mg/dL (8.4-25.7); Calc. Creatinine Clearance 39 mL/min (70-130); Calcium 8.2 mg/dL (7.8-10.44); Carbon Dioxide 28 mmol/L (23-31); Chloride 110 mmol/L (98-107); Estimated GFR-MDRD 56; Glucose 114 mg/dL (83-110); Sodium 143 mmol/L (136-145)
[2019-05-11] MEDS ORDERED: Minoxidil 2.5 MG TAB PO SCH (21:00)
[2019-05-11] MEDS: Ziprasidone 20 MG CAP PO SCH (21:07)
[2019-05-11] MEDS: Enoxaparin Sodium 40 MG/0.4 ML SYRINGE SC SCH (21:45)
--- NOTE | 2019-05-11 23:09 | PDOC.HOSPP ---
- Subjective Encounter Date: 05/11/19 Encounter Time: 08:30 Subjective: Patient seen and examined for AMS. Remains confused. No overnight events - Objective Vital Signs & Weight: Vital Signs (12 hours) Temp Pulse Pulse Pulse Resp BP BP 05/11/19 20:00 98.1 F 68 20 05/11/19 16:45 98.1 F 77 18 05/11/19 12:20 80 77 110/64 107/60 05/11/19 11:45 62 18 BP Pulse Ox 05/11/19 20:00 172/108 H 98 05/11/19 16:45 141/86 H 95 05/11/19 12:20 05/11/19 11:45 161/91 H 94 L Weight Admit Weight 135 lb 12.8 oz Weight 137 lb 3.2 oz I&O: 05/10/19 05/11/19 05/12/19 06:59 06:59 06:59 Intake Total 1553 240 Output Total 0 Balance 1553 0 240 Result Diagrams: 05/12/19 04:50 05/12/19 04:50 EKG Reviewed by me: Yes (Tele SR) Hospitalist ROS - Review of Systems ROS unobtainable: due to mental status - Medication Medications: Active Medications Generic Name Dose Route Start Last Admin Trade Name Freq PRN Reason Stop Dose Admin Amiodarone HCl 400 mg 05/11/19 21:00 05/11/19 21:07 Cordarone PO 400 mg BID LARISA Administration Aspirin 81 mg 05/09/19 09:00 05/11/19 09:54 Ecotrin PO 81 mg DAILY LARISA Administration Carbidopa/Levodopa 3 tab 05/08/19 16:00 05/11/19 16:39 Sinemet 25-100 PO 3 tab 0900,1600 LARISA Administration Donepezil HCl 5 mg 05/09/19 09:00 05/10/19 11:07 Aricept PO 5 mg DAILY LARISA Administration Enoxaparin Sodium 40 mg 05/11/19 21:00 05/11/19 21:45 Lovenox SC Not Given 2100 LARISA Famotidine 20 mg 05/10/19 09:00 05/11/19 09:54 Pepcid PO 20 mg DAILY LARISA Administration Famotidine 20 mg 05/10/19 09:00 05/10/19 11:07 Pepcid SLOW IVP 20 mg DAILY LARISA Administration Fluoxetine HCl 20 mg 05/09/19 09:00 05/11/19 09:54 Prozac PO 20 mg DAILY LARISA Administration Gabapentin 100 mg 05/10/19 21:00 05/11/19 21:07 Neurontin PO 100 mg BID LARISA Administration Piperacillin Sod/Tazobactam 100 mls @ 200 mls/hr 05/08/19 14:00 05/11/19 21: 07 Sod 3.375 gm/ Sodium Chloride IVPB 100 mls 0200,0800,1400,2000 LARISA Administration Dextrose/Sodium Chloride 1,000 mls @ 30 mls/hr 05/08/19 14:10 05/11/19 17:28 D5 1/2 Ns IV 1,000 mls .Q24H LARISA Administration Levothyroxine Sodium 100 mcg 05/09/19 06:00 05/10/19 05:31 Synthroid PO 100 mcg 0600 LARISA Administration Lorazepam 0.25 mg 05/08/19 13:48 05/11/19 22:57 Ativan SLOW IVP 0.25 mg Q4H PRN Administration Anxiety/Agitation Minoxidil 5 mg 05/11/19 21:00 05/11/19 21:07 Minoxidil PO 5 mg QPM LARISA Administration Multivitamins/Minerals 1 tab 05/11/19 09:00 05/11/19 09:54 Ocuvite With Lutein PO 1 tab DAILY LARISA Administration Prednisone 20 mg 05/08/19 17:00 05/11/19 16:39 Prednisone PO 20 mg BID-WM LARISA Administration Saccharomyces Boulardii 250 mg 05/09/19 09:00 05/11/19 09:54 Florastor PO 250 mg DAILY LARISA Administration Ziprasidone 20 mg 05/11/19 21:00 05/11/19 21:07 Geodon PO 20 mg HS LARISA Administration - Exam General Appearance: NAD (confused) Heart: RRR, no gallops Respiratory: no wheezes, rales, rhonchi Gastrointestinal: soft, non-tender, normal bowel sounds Extremities: no edema Hosp A/P - Plan DVT proph w/SCDs 1. Toxic metabolic encephalopathy secondary to acute hypoxic respiratory failure. 2. Aspiration pneumonia. 3. Afib with RVR - s/p Amiodarone drip 4. Type 2 myocardial infarction. 5. Abnormal LFTs, probably secondary to passive hepatic congestion. 6. Generalized weakness with recurrent falls. 7. Chronic kidney disease, stage 2. 8. Dementia. 9. Infrarenal abdominal aortic aneurysm 4.1 cm. 10. Moderate wedge compression fracture of L1. 11. Leukopenia, probably secondary to pneumonia. 12. Thrombocytopenia - improving. 13. History of Parkinson disease. 14. Hypothyroidism. 15. Depression, mild, stable. 16. Swallow dysfunction. PLAN: Cont PO Amiodarone Add Geodon due to persistent agitation - I d/w Dr Barth Cont Atbx/Steroids Cont modified diet as tolerated DC anticoagulation per family req DNR verifiied Cont other meds as above Plan d/w family at bedside AM labs
[2019-05-12] MEDS: Piperacillin/Tazobactam 3.375 GM in Sodium Chloride 0.9% 100 ML IVPB SCH ×4 (02:59→21:50)
[2019-05-12] MEDS: Dextrose 5 %-0.45 % NaCl 1,000 ML IV SCH (05:37)
[2019-05-12] MEDS: Levothyroxine Sodium 100 MCG TAB PO SCH (05:37)
[2019-05-12 05:38] LABS: #Lymphocytes 0.6 thou/uL (1.20-3.40); #Monocytes 0.3 thou/uL (0.11-0.59); #Neutrophils 1.7 thou/uL (1.40-6.50); %Eosinophils 0.7 % (0.0-10.0); %Lymphocytes 21.7 % (21.0-51.0); %Monocytes 12.2 % (0.0-10.0); %Neutrophils 65.4 % (42.0-75.0); Hemoglobin 10.2 g/dL (14.0-18.0); Mean Corpuscular Hemoglobin 33.4 pg (27.0-31.0); Mean Corpuscular Volume 98.5 fL (78.0-98.0); Mean Platelet Volume 7.3 fL (7.4-10.4); Platelet Count 175 thou/uL (130-400); Red Blood Cell (RBC) Count 3.04 mill/uL (4.70-6.10); White Blood Cell (WBC) Count 2.6 thou/uL (4.8-10.8)
[2019-05-12 06:10] LABS: Albumin 2.7 g/dL (3.4-4.8); Anion Gap 10 mmol/L (10-20); BUN (Urea Nitrogen) 28 mg/dL (8.4-25.7); BUN/Creatinine Ratio 27.72; Calc. Creatinine Clearance 47 mL/min (70-130); Calcium 7.9 mg/dL (7.8-10.44); Carbon Dioxide 25 mmol/L (23-31); Chloride 111 mmol/L (98-107); Estimated GFR-MDRD 70; Glucose 133 mg/dL (83-110); Magnesium 2.1 mg/dL (1.6-2.6); Phosphorus 3.3 mg/dL (2.3-4.7); Potassium 3.9 mmol/L (3.5-5.1); Sodium 142 mmol/L (136-145)
[2019-05-12] MEDS: FLUoxetine HCl 20 MG CAP PO SCH (08:39)
[2019-05-12] MEDS: Carbidopa/Levodopa 25-100 mg Tablet PO SCH ×2 (08:39→16:05)
[2019-05-12] MEDS: Saccharomyces boulardii 250 MG CAP PO SCH (08:39)
[2019-05-12] MEDS: predniSONE 20 MG TAB PO SCH ×2 (08:40→16:05)
[2019-05-12] MEDS: Donepezil HCl 5 MG TAB PO SCH (08:40)
[2019-05-12] MEDS: Famotidine 20 MG TAB PO SCH (08:40)
[2019-05-12] MEDS: Aspirin 81 mg Enteric Coated Tablet PO SCH (08:40)
[2019-05-12] MEDS: Gabapentin 100 MG CAP PO SCH ×2 (08:40→21:50)
[2019-05-12] MEDS: Vit A,C & E/Lutein/Minerals Tablet PO SCH (08:40)
[2019-05-12] MEDS: Amiodarone 200 MG TAB PO SCH ×2 (08:40→21:50)
[2019-05-12] MEDS: Acetaminophen 325 MG TAB PO PRN (08:40)
[2019-05-12] MEDS: Famotidine/PF 20 mg/2ml Vial SLOW IVP SCH (08:41)
[2019-05-12] MEDS: Lorazepam 2 MG/ML VIAL SLOW IVP PRN (11:28)
--- NOTE | 2019-05-12 15:29 | PDOC.PALCO ---
Palliative Care Consult - Consult Details Requesting Physician: Dr Varghese Reason for Consult: assistance with communication prognosis/disease, family support Family Members Present: , daughter in law, granddaughter - Allergies Allergies/Adverse Reactions: Allergies Allergy/AdvReac Type Severity Reaction Status Date / Time No Known Allergies Allergy Unverified 09/25/14 15:38 - ROS Non Response: due to mental status Constitutional: weakness ENT: alteration in dentition, dry mouth Psychological: anxiety, restless - Objective Vital Signs: Vital Signs - Most Recent Temp Pulse Resp BP Pulse Ox 97.3 F L 57 L 19 159/79 H 97 05/12/19 11:25 05/12/19 11:25 05/12/19 11:25 05/12/19 11:25 05/12/19 11:25 Palliative Performance Scale: 30 - Physical Exam Constitutional: cachectic, encephalitic, ill appearing HEENT: moist MMs Gastrointestinal: positive bowel sounds, incontinent Genitourinary: incontinent Musculoskeletal: no cyanosis, no edema, pulses present, muscle wasting Neurology: moves all 4 limbs Deviation from normal: non verbal, Skin: cap refill <2 seconds, fragile Deviation from normal: erythema to scrotum Deviation from normal: aggitated, confused - Problem List (1) Palliative care encounter Code(s): Z51.5 - ENCOUNTER FOR PALLIATIVE CARE Current Visit: Yes Status: Acute - Plan/Recommendations Plan: *Initial conversation with patient . Requesting more information in relation to disease trajectory of parkinsons disease. *Clonazepam 0.5mg po for agitation BID *Encouraged family to get a "Busy blanket" for tactile stimulation and non pharmacologic measure to reduce agitation *Follow up 05/13 for education with and family support. *Will reach out to Spiritual Care for visit for patient and to provide spiritual and emotional support [] minutes spent on this encounter with >50% of the time in counseling and coordination of care. Thank you for this very appropriate consult.
[2019-05-12] MEDS ORDERED: clonazePAM 0.5 MG TAB PO SCH (15:43)
--- NOTE | 2019-05-12 21:20 | EKG ---
Test Reason : Blood Pressure : / mmHG Vent. Rate : 115 BPM Atrial Rate : 090 BPM P-R Int : 000 ms QRS Dur : 072 ms QT Int : 314 ms P-R-T Axes : 000 043 -20 degrees QTc Int : 434 ms Atrial fibrillation with rapid ventricular response with premature ventricular or aberrantly conducte d complexes Nonspecific ST and T wave abnormality , probably digitalis effect Abnormal ECG When compared with ECG of 08-MAY-2019 08:09, (Unconfirmed) Atrial fibrillation has replaced Junctional rhythm ST now depressed in Inferior leads Confirmed by Carroll ALVAREZ ([id number]) on 05/12/2019 9:20:19 PM Referred By: CULLEN Confirmed By:Carroll ALVAREZ
[2019-05-12] MEDS: clonazePAM 0.5 MG TAB PO SCH (21:50)
[2019-05-12] MEDS: Ziprasidone 20 MG CAP PO SCH (21:50)
[2019-05-12] MEDS: Enoxaparin Sodium 40 MG/0.4 ML SYRINGE SC SCH (21:51)
--- NOTE | 2019-05-12 23:21 | PDOC.HOSPP ---
- Subjective Encounter Date: 05/12/19 Encounter Time: 19:00 Subjective: Patient seen and examined for Encephalopathy/Sepsis. Remains agitated and confused. Overnight events noted - Objective Vital Signs & Weight: Vital Signs (12 hours) Temp Pulse Resp BP Pulse Ox 05/12/19 20:00 98.1 F 61 20 168/101 H 93 L 05/12/19 16:25 97.9 F 69 20 155/73 H 94 L 05/12/19 11:25 97.3 F L 57 L 19 159/79 H 97 Weight Admit Weight 135 lb 12.8 oz Weight 145 lb 11.609 oz I&O: 05/11/19 05/12/19 05/13/19 06:59 06:59 06:59 Intake Total 1140 860 Output Total 0 Balance 0 1140 860 Result Diagrams: 05/12/19 04:50 05/12/19 04:50 EKG Reviewed by me: Yes (Tele SR) Hospitalist ROS - Review of Systems ROS unobtainable: due to mental status - Medication Medications: Active Medications Generic Name Dose Route Start Last Admin Trade Name Freq PRN Reason Stop Dose Admin Acetaminophen 650 mg 05/08/19 13:50 05/12/19 08:40 Tylenol PO 650 mg Q4H PRN Administration Headache/Fever/Mild Pain (1-3) Amiodarone HCl 200 mg 05/12/19 09:00 05/12/19 21:50 Cordarone PO 200 mg BID LARISA Administration Aspirin 81 mg 05/09/19 09:00 05/12/19 08:40 Ecotrin PO 81 mg DAILY LARISA Administration Carbidopa/Levodopa 3 tab 05/08/19 16:00 05/12/19 16:05 Sinemet 25-100 PO 3 tab 0900,1600 LARISA Administration Clonazepam 0.5 mg 05/12/19 21:00 05/12/19 21:50 Klonopin PO 0.5 mg BID LARISA Administration Donepezil HCl 5 mg 05/09/19 09:00 05/12/19 08:40 Aricept PO 5 mg DAILY LARISA Administration Enoxaparin Sodium 40 mg 05/11/19 21:00 05/12/19 21:51 Lovenox SC 40 mg 2100 LARISA Administration Famotidine 20 mg 05/10/19 09:00 05/12/19 08:40 Pepcid PO 20 mg DAILY LARISA Administration Famotidine 20 mg 05/10/19 09:00 05/12/19 08:41 Pepcid SLOW IVP Not Given DAILY LARISA Fluoxetine HCl 20 mg 05/09/19 09:00 05/12/19 08:39 Prozac PO 20 mg DAILY LARISA Administration Gabapentin 100 mg 05/10/19 21:00 05/12/19 21:50 Neurontin PO 100 mg BID LARISA Administration Piperacillin Sod/Tazobactam 100 mls @ 200 mls/hr 05/08/19 14:00 05/12/19 21: 50 Sod 3.375 gm/ Sodium Chloride IVPB 100 mls 0200,0800,1400,2000 LARISA Administration Dextrose/Sodium Chloride 1,000 mls @ 30 mls/hr 05/08/19 14:10 05/12/19 05:37 D5 1/2 Ns IV 1,000 mls .Q24H LARISA Administration Levothyroxine Sodium 100 mcg 05/09/19 06:00 05/12/19 05:37 Synthroid PO 100 mcg 0600 LARISA Administration Lorazepam 0.25 mg 05/08/19 13:48 05/12/19 11:28 Ativan SLOW IVP 0.25 mg Q4H PRN Administration Anxiety/Agitation Multivitamins/Minerals 1 tab 05/11/19 09:00 05/12/19 08:40 Ocuvite With Lutein PO 1 tab DAILY LARISA Administration Prednisone 20 mg 05/08/19 17:00 05/12/19 16:05 Prednisone PO 20 mg BID-WM LARISA Administration Saccharomyces Boulardii 250 mg 05/09/19 09:00 05/12/19 08:39 Florastor PO 250 mg DAILY LARISA Administration Sodium Chloride 10 ml 05/08/19 13:50 05/12/19 16:04 Flush - Normal Saline IVF 10 ml PRN PRN Administration Saline Flush Ziprasidone 20 mg 05/11/19 21:00 05/12/19 21:50 Geodon PO 20 mg HS LARISA Administration - Exam General Appearance: NAD Heart: RRR, no gallops Respiratory: rales, rhonchi Gastrointestinal: soft, normal bowel sounds Extremities: no edema Hosp A/P - Plan DVT proph w/lovenox, DVT proph w/SCDs 1. Toxic metabolic encephalopathy secondary to acute hypoxic respiratory failure. 2. Aspiration pneumonia. 3. Afib with RVR - s/p Amiodarone drip 4. Type 2 myocardial infarction. 5. Abnormal LFTs, probably secondary to passive hepatic congestion. 6. Generalized weakness with recurrent falls. 7. Chronic kidney disease, stage 2. 8. Dementia. 9. Infrarenal abdominal aortic aneurysm 4.1 cm. 10. Moderate wedge compression fracture of L1. 11. Leukopenia, probably secondary to pneumonia. 12. Thrombocytopenia - improving. 13. History of Parkinson disease. 14. Hypothyroidism. 15. Depression, mild, stable. 16. Swallow dysfunction. PLAN: Cont PO Amiodarone/Atbx/Steroids Clonazepam added today Very poor appetite Cont other meds as above Hospice eval
[2019-05-13] MEDS: Lorazepam 2 MG/ML VIAL SLOW IVP PRN ×2 (00:24→16:57)
[2019-05-13] MEDS: Piperacillin/Tazobactam 3.375 GM in Sodium Chloride 0.9% 100 ML IVPB SCH ×4 (01:40→20:08)
[2019-05-13] MEDS: Levothyroxine Sodium 100 MCG TAB PO SCH (05:44)
[2019-05-13] MEDS: Aspirin 81 mg Enteric Coated Tablet PO SCH (08:43)
[2019-05-13] MEDS: predniSONE 20 MG TAB PO SCH ×2 (08:43→16:53)
[2019-05-13] MEDS: Carbidopa/Levodopa 25-100 mg Tablet PO SCH ×2 (08:43→16:53)
[2019-05-13] MEDS: Famotidine 20 MG TAB PO SCH (08:43)
[2019-05-13] MEDS: Gabapentin 100 MG CAP PO SCH ×2 (08:43→20:09)
[2019-05-13] MEDS: Saccharomyces boulardii 250 MG CAP PO SCH (08:43)
[2019-05-13] MEDS: clonazePAM 0.5 MG TAB PO SCH ×2 (08:43→20:09)
[2019-05-13] MEDS: Donepezil HCl 5 MG TAB PO SCH (08:43)
[2019-05-13] MEDS: Vit A,C & E/Lutein/Minerals Tablet PO SCH (08:43)
[2019-05-13] MEDS: FLUoxetine HCl 20 MG CAP PO SCH (08:43)
[2019-05-13] MEDS: Famotidine/PF 20 mg/2ml Vial SLOW IVP SCH (08:44)
[2019-05-13] MEDS: Amiodarone 200 MG TAB PO SCH ×2 (08:44→21:41)
[2019-05-13] MEDS: Dextrose 5 %-0.45 % NaCl 1,000 ML IV SCH ×2 (15:27→23:06)
[2019-05-13] MEDS: Acetaminophen 325 MG TAB PO PRN (16:57)
[2019-05-13] MEDS: Ziprasidone 20 MG CAP PO SCH (20:08)
[2019-05-13] MEDS: Enoxaparin Sodium 40 MG/0.4 ML SYRINGE SC SCH (20:09)
[2019-05-14] MEDS: Piperacillin/Tazobactam 3.375 GM in Sodium Chloride 0.9% 100 ML IVPB SCH ×4 (02:08→20:41)
[2019-05-14] MEDS: Levothyroxine Sodium 100 MCG TAB PO SCH (05:26)
[2019-05-14 06:21] LABS: #Lymphocytes 0.5 thou/uL (1.20-3.40); #Monocytes 0.2 thou/uL (0.11-0.59); #Neutrophils 1.8 thou/uL (1.40-6.50); %Eosinophils 0.4 % (0.0-10.0); %Lymphocytes 19.9 % (21.0-51.0); %Monocytes 8.3 % (0.0-10.0); %Neutrophils 71.4 % (42.0-75.0); Hemoglobin 10.7 g/dL (14.0-18.0); Mean Corpuscular HGB CONC 34.8 g/dL (32.0-36.0); Mean Corpuscular Hemoglobin 33.4 pg (27.0-31.0); Mean Platelet Volume 7.4 fL (7.4-10.4); Platelet Count 174 thou/uL (130-400); RBC Distribution Width 13.9 % (11.5-14.5); Red Blood Cell (RBC) Count 3.21 mill/uL (4.70-6.10); White Blood Cell (WBC) Count 2.5 thou/uL (4.8-10.8)
[2019-05-14 06:38] LABS: ALT (SGPT) 7 U/L (8-55); AST (SGOT) 28 U/L (5-34); Albumin 2.7 g/dL (3.4-4.8); Alkaline Phosphatase 55 U/L (40-110); Anion Gap 11 mmol/L (10-20); BUN (Urea Nitrogen) 22 mg/dL (8.4-25.7); Calc. Creatinine Clearance 53 mL/min (70-130); Carbon Dioxide 24 mmol/L (23-31); Chloride 108 mmol/L (98-107); Estimated GFR-MDRD 77; Globulin 2.3 g/dL (2.4-3.5); Glucose 134 mg/dL (83-110); Potassium 3.9 mmol/L (3.5-5.1); Sodium 139 mmol/L (136-145)
--- NOTE | 2019-05-14 08:12 | PDOC.HOSPP ---
- Subjective Encounter Date: 05/13/19 Encounter Time: 11:00 non-verbal Subjective: Patient seen and examined for Encephlaopathy/Pneumonia. No change in mentation. Appetite improving per spouse. No overnight events - Objective Vital Signs & Weight: Vital Signs (12 hours) Temp Pulse Resp BP BP Pulse Ox 05/14/19 07:28 97.5 F L 67 14 174/96 H 94 L 05/14/19 04:05 97.4 F L 56 L 16 138/65 96 05/14/19 00:11 97.6 F 48 L 16 158/82 H 95 05/13/19 22:30 97.9 F 55 L 18 159/88 H 93 L Weight Admit Weight 135 lb 12.8 oz Weight 141 lb 8 oz I&O: 05/13/19 05/14/19 05/15/19 06:59 06:59 06:59 Intake Total 1620 400 Balance 1620 400 Result Diagrams: 05/14/19 05:48 05/14/19 05:48 EKG Reviewed by me: Yes (Tele SR) Hospitalist ROS - Review of Systems ROS unobtainable: due to mental status - Medication Medications: Active Medications Generic Name Dose Route Start Last Admin Trade Name Freq PRN Reason Stop Dose Admin Acetaminophen 650 mg 05/08/19 13:50 05/13/19 16:57 Tylenol PO 650 mg Q4H PRN Administration Headache/Fever/Mild Pain (1-3) Amiodarone HCl 200 mg 05/12/19 09:00 05/13/19 21:41 Cordarone PO 200 mg BID LARISA Administration Aspirin 81 mg 05/09/19 09:00 05/13/19 08:43 Ecotrin PO 81 mg DAILY LARISA Administration Carbidopa/Levodopa 3 tab 05/08/19 16:00 05/13/19 16:53 Sinemet 25-100 PO 3 tab 0900,1600 LARISA Administration Clonazepam 0.5 mg 05/12/19 21:00 05/13/19 20:09 Klonopin PO 0.5 mg BID LARISA Administration Donepezil HCl 5 mg 05/09/19 09:00 05/13/19 08:43 Aricept PO 5 mg DAILY LARISA Administration Enoxaparin Sodium 40 mg 05/11/19 21:00 05/13/19 20:09 Lovenox SC 40 mg 2100 LARISA Administration Famotidine 20 mg 05/10/19 09:00 05/13/19 08:43 Pepcid PO 20 mg DAILY LARISA Administration Famotidine 20 mg 05/10/19 09:00 05/13/19 08:44 Pepcid SLOW IVP Not Given DAILY LARISA Fluoxetine HCl 20 mg 05/09/19 09:00 05/13/19 08:43 Prozac PO 20 mg DAILY LARISA Administration Gabapentin 100 mg 05/10/19 21:00 05/13/19 20:09 Neurontin PO 100 mg BID LARISA Administration Piperacillin Sod/Tazobactam 100 mls @ 200 mls/hr 05/08/19 14:00 05/14/19 02: 08 Sod 3.375 gm/ Sodium Chloride IVPB 100 mls 0200,0800,1400,2000 LARISA Administration Dextrose/Sodium Chloride 1,000 mls @ 30 mls/hr 05/08/19 14:10 05/13/19 23:06 D5 1/2 Ns IV 1,000 mls .Q24H LARISA Administration Levothyroxine Sodium 100 mcg 05/09/19 06:00 05/14/19 05:26 Synthroid PO 100 mcg 0600 LARISA Administration Lorazepam 0.25 mg 05/08/19 13:48 05/13/19 16:57 Ativan SLOW IVP 0.25 mg Q4H PRN Administration Anxiety/Agitation Multivitamins/Minerals 1 tab 05/11/19 09:00 05/13/19 08:43 Ocuvite With Lutein PO 1 tab DAILY LARISA Administration Prednisone 20 mg 05/08/19 17:00 05/13/19 16:53 Prednisone PO 20 mg BID-WM LARISA Administration Saccharomyces Boulardii 250 mg 05/09/19 09:00 05/13/19 08:43 Florastor PO 250 mg DAILY LARISA Administration Sodium Chloride 10 ml 05/08/19 13:50 05/13/19 23:06 Flush - Normal Saline IVF 10 ml PRN PRN Administration Saline Flush Ziprasidone 20 mg 05/11/19 21:00 05/13/19 20:08 Geodon PO 20 mg HS LARISA Administration - Exam General Appearance: NAD Heart: RRR, no gallops Respiratory: rales, rhonchi, wheezes Gastrointestinal: soft, normal bowel sounds Extremities: no edema Hosp A/P - Plan 1. Toxic metabolic encephalopathy secondary to acute hypoxic respiratory failure. 2. Aspiration pneumonia. 3. Afib with RVR - s/p Amiodarone drip 4. Type 2 myocardial infarction. 5. Abnormal LFTs, probably secondary to passive hepatic congestion. 6. Generalized weakness with recurrent falls. 7. Chronic kidney disease, stage 2. 8. Dementia. 9. Infrarenal abdominal aortic aneurysm 4.1 cm. 10. Moderate wedge compression fracture of L1. 11. Leukopenia, probably secondary to pneumonia. 12. Thrombocytopenia - improving. 13. History of Parkinson disease. 14. Hypothyroidism. 15. Depression, mild, stable. 16. Swallow dysfunction. PLAN: Cont Clonazepam Cont Atbx/Steroids On Amiodarone Cont other meds as above Hospice eval pending AM labs
[2019-05-14] MEDS: FLUoxetine HCl 20 MG CAP PO SCH (08:42)
[2019-05-14] MEDS: predniSONE 20 MG TAB PO SCH ×2 (08:42→16:57)
[2019-05-14] MEDS: Vit A,C & E/Lutein/Minerals Tablet PO SCH (08:42)
[2019-05-14] MEDS: Aspirin 81 mg Enteric Coated Tablet PO SCH (08:42)
[2019-05-14] MEDS: clonazePAM 0.5 MG TAB PO SCH ×2 (08:42→20:42)
[2019-05-14] MEDS: Donepezil HCl 5 MG TAB PO SCH (08:42)
[2019-05-14] MEDS: Gabapentin 100 MG CAP PO SCH ×2 (08:43→20:42)
[2019-05-14] MEDS: Carbidopa/Levodopa 25-100 mg Tablet PO SCH ×2 (08:43→15:12)
[2019-05-14] MEDS: Famotidine 20 MG TAB PO SCH (08:43)
[2019-05-14] MEDS: Saccharomyces boulardii 250 MG CAP PO SCH (08:43)
[2019-05-14] MEDS: Amiodarone 200 MG TAB PO SCH ×2 (08:43→20:42)
[2019-05-14] MEDS: Famotidine/PF 20 mg/2ml Vial SLOW IVP SCH (08:48)
--- NOTE | 2019-05-14 15:23 | PDOC.HOSPP ---
- Subjective Encounter Date: 05/14/19 Encounter Time: 14:00 non-verbal Subjective: Patient seen and examined for Sepsis/Encephalopathy. Poor appetite. No overnight events - Objective Vital Signs & Weight: Vital Signs (12 hours) Temp Pulse Resp BP BP BP Pulse Ox 05/14/19 11:17 98.1 F 54 L 16 166/83 H 93 L 05/14/19 07:28 97.5 F L 67 14 174/96 H 94 L 05/14/19 04:05 97.4 F L 56 L 16 138/65 96 Weight Admit Weight 135 lb 12.8 oz Weight 141 lb 8 oz I&O: 05/13/19 05/14/19 05/15/19 06:59 06:59 06:59 Intake Total 1620 400 Balance 1620 400 Result Diagrams: 05/14/19 05:48 05/14/19 05:48 Hospitalist ROS - Review of Systems ROS unobtainable: due to mental status - Medication Medications: Active Medications Generic Name Dose Route Start Last Admin Trade Name Freq PRN Reason Stop Dose Admin Acetaminophen 650 mg 05/08/19 13:50 05/13/19 16:57 Tylenol PO 650 mg Q4H PRN Administration Headache/Fever/Mild Pain (1-3) Amiodarone HCl 200 mg 05/12/19 09:00 05/14/19 08:43 Cordarone PO 200 mg BID LARISA Administration Aspirin 81 mg 05/09/19 09:00 05/14/19 08:42 Ecotrin PO 81 mg DAILY LARISA Administration Carbidopa/Levodopa 3 tab 05/08/19 16:00 05/14/19 08:43 Sinemet 25-100 PO 3 tab 0900,1600 LARISA Administration Clonazepam 0.5 mg 05/12/19 21:00 05/14/19 08:42 Klonopin PO 0.5 mg BID LARISA Administration Donepezil HCl 5 mg 05/09/19 09:00 05/14/19 08:42 Aricept PO 5 mg DAILY LARISA Administration Enoxaparin Sodium 40 mg 05/11/19 21:00 05/13/19 20:09 Lovenox SC 40 mg 2100 LARISA Administration Famotidine 20 mg 05/10/19 09:00 05/14/19 08:43 Pepcid PO 20 mg DAILY LARISA Administration Famotidine 20 mg 05/10/19 09:00 05/14/19 08:48 Pepcid SLOW IVP Not Given DAILY LARISA Fluoxetine HCl 20 mg 05/09/19 09:00 05/14/19 08:42 Prozac PO 20 mg DAILY LARISA Administration Gabapentin 100 mg 05/10/19 21:00 05/14/19 08:43 Neurontin PO 100 mg BID LARISA Administration Piperacillin Sod/Tazobactam 100 mls @ 200 mls/hr 05/08/19 14:00 05/14/19 08: 43 Sod 3.375 gm/ Sodium Chloride IVPB 100 mls 0200,0800,1400,2000 LARISA Administration Dextrose/Sodium Chloride 1,000 mls @ 30 mls/hr 05/08/19 14:10 05/13/19 23:06 D5 1/2 Ns IV 1,000 mls .Q24H LARISA Administration Levothyroxine Sodium 100 mcg 05/09/19 06:00 05/14/19 05:26 Synthroid PO 100 mcg 0600 LARISA Administration Lorazepam 0.25 mg 05/08/19 13:48 05/13/19 16:57 Ativan SLOW IVP 0.25 mg Q4H PRN Administration Anxiety/Agitation Multivitamins/Minerals 1 tab 05/11/19 09:00 05/14/19 08:42 Ocuvite With Lutein PO 1 tab DAILY LARISA Administration Prednisone 20 mg 05/08/19 17:00 05/14/19 08:42 Prednisone PO 20 mg BID-WM LARISA Administration Saccharomyces Boulardii 250 mg 05/09/19 09:00 05/14/19 08:43 Florastor PO 250 mg DAILY LARISA Administration Sodium Chloride 10 ml 05/08/19 13:50 05/13/19 23:06 Flush - Normal Saline IVF 10 ml PRN PRN Administration Saline Flush Ziprasidone 20 mg 05/11/19 21:00 05/13/19 20:08 Geodon PO 20 mg HS LARISA Administration - Exam General Appearance: NAD Heart: RRR, no gallops Respiratory: rales, rhonchi Gastrointestinal: soft, normal bowel sounds Extremities: no edema Hosp A/P - Plan DVT proph w/lovenox, DVT proph w/SCDs 1. Toxic metabolic encephalopathy secondary to acute hypoxic respiratory failure. 2. Aspiration pneumonia. 3. Afib with RVR - s/p Amiodarone drip 4. Type 2 myocardial infarction. 5. Abnormal LFTs, probably secondary to passive hepatic congestion. 6. Generalized weakness with recurrent falls. 7. Chronic kidney disease, stage 2. 8. Dementia. 9. Infrarenal abdominal aortic aneurysm 4.1 cm. 10. Moderate wedge compression fracture of L1. 11. Leukopenia, probably secondary to pneumonia. 12. Thrombocytopenia - improving. 13. History of Parkinson disease. 14. Hypothyroidism. 15. Depression, mild, stable. 16. Swallow dysfunction. PLAN: Cont Clonazepam Cont Atbx/Steroids Cont other meds including Amiodarone Hospice eval pending
[2019-05-14] MEDS: Lorazepam 2 MG/ML VIAL SLOW IVP PRN (16:57)
[2019-05-14] MEDS: Enoxaparin Sodium 40 MG/0.4 ML SYRINGE SC SCH (20:42)
[2019-05-14] MEDS: Ziprasidone 20 MG CAP PO SCH (20:42)
[2019-05-15] MEDS: Piperacillin/Tazobactam 3.375 GM in Sodium Chloride 0.9% 100 ML IVPB SCH ×4 (01:59→20:28)
[2019-05-15] MEDS: Dextrose 5 %-0.45 % NaCl 1,000 ML IV SCH (01:59)
[2019-05-15] MEDS: Levothyroxine Sodium 100 MCG TAB PO SCH (05:39)
[2019-05-15] MEDS: Vit A,C & E/Lutein/Minerals Tablet PO SCH (08:30)
[2019-05-15] MEDS: Saccharomyces boulardii 250 MG CAP PO SCH (08:30)
[2019-05-15] MEDS: Aspirin 81 mg Enteric Coated Tablet PO SCH (08:30)
[2019-05-15] MEDS: Gabapentin 100 MG CAP PO SCH ×2 (08:31→20:29)
[2019-05-15] MEDS: Carbidopa/Levodopa 25-100 mg Tablet PO SCH ×2 (08:31→15:30)
[2019-05-15] MEDS: predniSONE 20 MG TAB PO SCH ×2 (08:31→15:34)
[2019-05-15] MEDS: Donepezil HCl 5 MG TAB PO SCH (08:31)
[2019-05-15] MEDS: clonazePAM 0.5 MG TAB PO SCH ×2 (08:31→20:29)
[2019-05-15] MEDS: Amiodarone 200 MG TAB PO SCH ×2 (08:31→20:29)
[2019-05-15] MEDS: FLUoxetine HCl 20 MG CAP PO SCH (08:31)
[2019-05-15] MEDS: Famotidine 20 MG TAB PO SCH (08:32)
[2019-05-15] MEDS: Famotidine/PF 20 mg/2ml Vial SLOW IVP SCH (08:32)
[2019-05-15] MEDS: Enoxaparin Sodium 40 MG/0.4 ML SYRINGE SC SCH (20:28)
[2019-05-15] MEDS: Ziprasidone 20 MG CAP PO SCH (20:29)
--- NOTE | 2019-05-15 22:42 | PDOC.HOSPP ---
- Subjective Encounter Date: 05/15/19 Encounter Time: 11:15 non-verbal Subjective: Patient seen and examined for encephalopathy. No overnight events - Objective Vital Signs & Weight: Vital Signs (12 hours) Temp Pulse Resp BP BP Pulse Ox 05/15/19 19:24 97.4 F L 52 L 16 127/72 92 L 05/15/19 15:55 97.8 F 58 L 20 141/75 H 91 L Weight Admit Weight 135 lb 12.8 oz Weight 134 lb 6 oz I&O: 05/14/19 05/15/19 05/16/19 06:59 06:59 06:59 Intake Total 400 430 Balance 400 430 Result Diagrams: 05/14/19 05:48 05/14/19 05:48 Hospitalist ROS - Review of Systems ROS unobtainable: due to mental status - Medication Medications: Active Medications Generic Name Dose Route Start Last Admin Trade Name Freq PRN Reason Stop Dose Admin Acetaminophen 650 mg 05/08/19 13:50 05/15/19 15:28 Tylenol RI 650 mg Q4H PRN Administration Headache/Fever/Mild Pain (1-3) Acetaminophen 650 mg 05/08/19 13:50 05/13/19 16:57 Tylenol PO 650 mg Q4H PRN Administration Headache/Fever/Mild Pain (1-3) Amiodarone HCl 200 mg 05/12/19 09:00 05/15/19 20:29 Cordarone PO 200 mg BID LARISA Administration Aspirin 81 mg 05/09/19 09:00 05/15/19 08:30 Ecotrin PO 81 mg DAILY LARISA Administration Carbidopa/Levodopa 3 tab 05/08/19 16:00 05/15/19 15:30 Sinemet 25-100 PO 3 tab 0900,1600 LARISA Administration Clonazepam 0.5 mg 05/12/19 21:00 05/15/19 20:29 Klonopin PO 0.5 mg BID LARISA Administration Donepezil HCl 5 mg 05/09/19 09:00 05/15/19 08:31 Aricept PO 5 mg DAILY LARISA Administration Enoxaparin Sodium 40 mg 05/11/19 21:00 05/15/19 20:28 Lovenox SC 40 mg 2100 LARISA Administration Famotidine 20 mg 05/10/19 09:00 05/15/19 08:32 Pepcid PO 20 mg DAILY LARISA Administration Famotidine 20 mg 05/10/19 09:00 05/15/19 08:32 Pepcid SLOW IVP Not Given DAILY LARISA Fluoxetine HCl 20 mg 05/09/19 09:00 05/15/19 08:31 Prozac PO 20 mg DAILY LARISA Administration Gabapentin 100 mg 05/10/19 21:00 05/15/19 20:29 Neurontin PO 100 mg BID LARISA Administration Piperacillin Sod/Tazobactam 100 mls @ 200 mls/hr 05/08/19 14:00 05/15/19 20: 28 Sod 3.375 gm/ Sodium Chloride IVPB 100 mls 0200,0800,1400,2000 LARISA Administration Dextrose/Sodium Chloride 1,000 mls @ 30 mls/hr 05/08/19 14:10 05/15/19 01:59 D5 1/2 Ns IV 1,000 mls .Q24H LARISA Administration Levothyroxine Sodium 100 mcg 05/09/19 06:00 05/15/19 05:39 Synthroid PO 100 mcg 0600 LARISA Administration Lorazepam 0.25 mg 05/08/19 13:48 05/14/19 16:57 Ativan SLOW IVP 0.25 mg Q4H PRN Administration Anxiety/Agitation Multivitamins/Minerals 1 tab 05/11/19 09:00 05/15/19 08:30 Ocuvite With Lutein PO 1 tab DAILY LARISA Administration Prednisone 20 mg 05/08/19 17:00 05/15/19 15:34 Prednisone PO 20 mg BID-WM LARISA Administration Saccharomyces Boulardii 250 mg 05/09/19 09:00 05/15/19 08:30 Florastor PO 250 mg DAILY LARISA Administration Sodium Chloride 10 ml 05/08/19 13:50 05/13/19 23:06 Flush - Normal Saline IVF 10 ml PRN PRN Administration Saline Flush Ziprasidone 20 mg 05/11/19 21:00 05/15/19 20:29 Geodon PO 20 mg HS LARISA Administration - Exam General Appearance: NAD Heart: RRR Respiratory: rales, rhonchi Gastrointestinal: soft, normal bowel sounds Extremities: no edema Hosp A/P - Plan DVT proph w/SCDs 1. Toxic metabolic encephalopathy secondary to acute hypoxic respiratory failure. 2. Aspiration pneumonia. 3. Afib with RVR - s/p Amiodarone drip 4. Type 2 myocardial infarction. 5. Abnormal LFTs, probably secondary to passive hepatic congestion. 6. Generalized weakness with recurrent falls. 7. Chronic kidney disease, stage 2. 8. Dementia. 9. Infrarenal abdominal aortic aneurysm 4.1 cm. 10. Moderate wedge compression fracture of L1. 11. Leukopenia, probably secondary to pneumonia. 12. Thrombocytopenia - improving. 13. History of Parkinson disease. 14. Hypothyroidism. 15. Depression, mild, stable. 16. Swallow dysfunction. PLAN: Cont Atbx/Steroids will change to PO at dc Cont other meds Await Hospice eval
[2019-05-16] MEDS: Piperacillin/Tazobactam 3.375 GM in Sodium Chloride 0.9% 100 ML IVPB SCH ×3 (02:14→13:44)
[2019-05-16] MEDS: Dextrose 5 %-0.45 % NaCl 1,000 ML IV SCH (02:15)
[2019-05-16] MEDS: Levothyroxine Sodium 100 MCG TAB PO SCH (05:39)
[2019-05-16] MEDS: clonazePAM 0.5 MG TAB PO SCH (08:30)
[2019-05-16] MEDS: Saccharomyces boulardii 250 MG CAP PO SCH (08:30)
[2019-05-16] MEDS: Carbidopa/Levodopa 25-100 mg Tablet PO SCH ×2 (08:30→16:21)
[2019-05-16] MEDS: Aspirin 81 mg Enteric Coated Tablet PO SCH (08:30)
[2019-05-16] MEDS: Donepezil HCl 5 MG TAB PO SCH (08:30)
[2019-05-16] MEDS: Famotidine 20 MG TAB PO SCH (08:31)
[2019-05-16] MEDS: FLUoxetine HCl 20 MG CAP PO SCH (08:31)
[2019-05-16] MEDS: Gabapentin 100 MG CAP PO SCH (08:31)
[2019-05-16] MEDS: Vit A,C & E/Lutein/Minerals Tablet PO SCH (08:31)
[2019-05-16] MEDS: Amiodarone 200 MG TAB PO SCH (08:31)
[2019-05-16] MEDS: predniSONE 20 MG TAB PO SCH ×2 (08:31→16:21)
[2019-05-16] MEDS: Famotidine/PF 20 mg/2ml Vial SLOW IVP SCH (08:39)
[2019-05-16] MEDS: Lorazepam 2 MG/ML VIAL SLOW IVP PRN ×2 (13:43→19:55)
[2019-05-16 14:27] VITALS: BMI 21.4
[2019-05-16] MEDS ORDERED: Ketorolac Tromethamine 30 MG/ML VIAL IVP SCH (15:30)
[2019-05-16 20:17] VITALS: BP 180/85; TEMP 97.5
--- NOTE | 2019-05-17 14:04 | DIS ---
DATE OF ADMISSION: 05/08/2019 DATE OF DISCHARGE: 05/16/2019 DISCHARGE DISPOSITION: Inpatient Hospice. DISCHARGE MEDICATIONS: Per Hospice. The patient was seen and examined on the day of discharge. BRIEF HOSPITAL COURSE: The patient is an 84-year-old male with advanced Parkinson disease with dementia, presented to the hospital with altered mentation and recurrent falls. His workup was consistent with toxic metabolic encephalopathy secondary to acute hypoxic respiratory failure as well as aspiration pneumonia. He was started on broad-spectrum antibiotics. His echocardiogram showed ejection fraction of 50% to 55% with mild mitral regurgitation, [id number] tricuspid regurgitation. He was placed on modified diet per speech therapy. He remained agitated throughout the hospital stay. Geodon was added after recommendation by Neurology. Later on, clonazepam was added after recommendation by Palliative Care team. The patient overall has been declining with significantly poor appetite. The family decided on inpatient hospice. FINAL DIAGNOSES: 1. Toxic metabolic encephalopathy, multifactorial. 2. Acute hypoxic respiratory failure secondary to aspiration pneumonia. 3. Atrial fibrillation with rapid ventricular response during this hospital stay requiring amiodarone drip. Amiodarone has been changed to oral. 4. Type 2 myocardial infarction. 5. Severe protein-calorie malnutrition. 6. Abnormal LFTs secondary to passive hepatic congestion. 7. Generalized weakness with recurrent falls, probably secondary to advanced Parkinson disease with dementia. 8. Chronic kidney disease 2. 9. Infrarenal abdominal aortic aneurysm, 4.1 cm. 10. Moderate wedge compression fracture of L1. 11. Leukopenia, probably secondary to pneumonia. 12. Thrombocytopenia. 13. Hypothyroidism. 14. Swallow dysfunction. 15. Depression, mild, stable. TIME SPENT WITH PATIENT: Total time coordinating the discharge of this patient was 36 minutes. Job ID: [id number]
== END 2019-05-16 20:05 | disposition hospice, inpatient (51) | DRG 177 ==
LOC: ERS 07:58 → 2NO 11:19 → SURG A 05-13 22:40
PROVIDERS: ADMIT Internal Medicine; ATTEND Internal Medicine
DX: J69.0 Pneumonitis due to inhalation of food and vomit (principal); G92 Toxic encephalopathy; J96.01 Acute respiratory failure with hypoxia; I21.A1 Myocardial infarction type 2; I13.0 Hypertensive heart and chronic kidney disease with heart failure and stage 1 through stage 4 chronic kidney disease, or unspecified chronic kidney disease; F33.0 Major depressive disorder, recurrent, mild; M48.56XA Collapsed vertebra, not elsewhere classified, lumbar region, initial encounter for fracture; R64 Cachexia; F02.81 Dementia in other diseases classified elsewhere, unspecified severity, with behavioral disturbance; Z51.5 Encounter for palliative care; Z66 Do not resuscitate; G20 Parkinson's disease; E03.9 Hypothyroidism, unspecified; Z90.89 Acquired absence of other organs; Z79.899 Other long term (current) drug therapy; N18.2 Chronic kidney disease, stage 2 (mild); I71.4 Abdominal aortic aneurysm, without rupture; D72.819 Decreased white blood cell count, unspecified; D69.6 Thrombocytopenia, unspecified; I48.0 Paroxysmal atrial fibrillation; W06.XXXA Fall from bed, initial encounter; I50.9 Heart failure, unspecified; R29.6 Repeated falls; Z68.21 Body mass index [BMI] 21.0-21.9, adult
CPT/HCPCS: 36415; 51701; 70450; 71045; 71260; 72125; 74177; 74230; 80048; 80053; 80069; 81003; 81015; 82550; 82553; 82607; 82746; 83605; 83735; 83880; 84443; 84484; 85025; 93005; 93010; 93306; 93798; 96365; J0282; J0696; J1160; J1650; J1885; J2060; J2543; J3490; J7070; J7512; Q9967; S0028